=== PATIENT | female | born 1980 | race Caucasian/White ===

== ENCOUNTER 2017-07-31 13:56 | Emergency (ER) | payer SELFPAY ==
[2017-07-31 14:50] LABS: Bilirubin Negative (Negative); Blood, Urine Large (Negative); Clarity CLOUDY (Clear); Glucose, Urine (Dipstick) Negative (Negative); Leukocyte Moderate (Negative); Nitrite Negative (Negative); Protein, Urine (Dipstick) Negative (Neg-Trace); Specific Gravity, Urine 1.023 (1.002-1.036); Urobilinogen 0.2 mg/dL (0.2-1.0)
[2017-07-31 14:56] LABS: Bacteria/HPF 1+ HPF (None Seen); Hyaline Casts/LPF 0-3 HYALINE CAST LPF (0-3 Hyaline); Pathc Cast-AUWi Flag 0.13 (0-2.49); WBC/HPF 21-50 HPF (0-3)
[2017-07-31 15:00] LABS: Pregnancy Test - Urine (BHCG) Negative (Negative); Pregu Control Background? CLEAR/WHITE (CLR/WHITE); Pregu Control Bar Appear? YES (CONTROL BAR); Specific Gravity 1.023 (1.002-1.036)
[2017-07-31] MEDS ORDERED: Ondansetron HCl/PF 4 MG/2 ML Vial ONE (15:44)
[2017-07-31] MEDS ORDERED: Ketorolac Tromethamine 30 MG/ML VIAL ONE (15:44)
[2017-07-31] MEDS ORDERED: Morphine 4 MG/ML Carpuject ONE ×3 (15:44→20:01)
--- NOTE | 2017-07-31 15:49 | CT ---
CT OF THE ABDOMEN AND PELVIS WITHOUT IV CONTRAST 07/31/17 INDICATION: 37-year-old female with right flank pain. COMPARISON: None. FINDINGS: There is diffuse renal cortical thinning involving the right kidney. There is moderate to severe pelv ocaliectasis. There is a 3.9 mm stone at the level of the right UPJ. There are additional nonobstruct ing calculi involving the mid inferior aspect of the left kidney. There is perinephric stranding invo lving the right kidney. No additional distal ureteral calculus is noted. Left kidney on this unopacified exam is within normal limits. The lung bases are clear. Unopacified liver, spleen, pancreas and adrenal glands are within normal limits. There is a normal appendix in the right lower quadrant. The uterus, adnexa, bladder, rectum, and dariel rectal soft tissues are unremarkable. No definite acute osseous abnormality is evident. IMPRESSION: 1. Findings suspicious for chronic right UPJ obstruction with diffuse renal cortical thinning in volving the right kidney. There is right nephrolithiasis and a small stone involving the proximal rig ht UPJ measuring up to 3.9 mm. There is perinephric stranding present. A superimposed ascending urina ry tract infection cannot be entirely excluded. Recommend correlation with clinical examination. 2. Unopacified left kidney appears within normal limits. 3. No additional acute abnormality. POS: [facility]
[2017-07-31 16:18] LABS: #Basophils 0.1 thou/uL (0.0-0.2); #Eosinphils 0.1 thou/uL (0.0-0.7); #Lymphocytes 2.3 thou/uL (1.20-3.40); #Monocytes 0.8 thou/uL (0.11-0.59); #Neutrophils 9.9 thou/uL (1.40-6.50); %Basophils 0.5 % (0.0-1.0); %Eosinophils 1.1 % (0.0-10.0); %Lymphocytes 17.4 % (21.0-51.0); %Monocytes 5.8 % (0.0-10.0); %Neutrophils 75.2 % (42.0-75.0); Mean Corpuscular HGB CONC 34.4 g/dL (32.0-36.0); Mean Corpuscular Hemoglobin 33.7 pg (27.0-31.0); Mean Platelet Volume 7.6 fL (7.4-10.4); Platelet Count 334 thou/uL (130-400); RBC Distribution Width 11.9 % (11.5-14.5); Red Blood Cell (RBC) Count 4.74 mill/uL (4.20-5.40); White Blood Cell (WBC) Count 13.2 thou/uL (4.8-10.8)
[2017-07-31 16:38] LABS: ALT (SGPT) 37 U/L (8-55); AST (SGOT) 20 U/L (5-34); Alkaline Phosphatase 83 U/L (40-150); Anion Gap 16 mmol/L (10-20); BUN (Urea Nitrogen) 14 mg/dL (7.0-18.7); Bilirubin, Total 0.3 mg/dL (0.2-1.2); Calc. Creatinine Clearance 0 mL/min (70-130); Calcium 9.5 mg/dL (7.8-10.44); Carbon Dioxide 22 mmol/L (22-29); Chloride 104 mmol/L (98-107); Estimated GFR-MDRD 56; Globulin 3.3 g/dL (2.4-3.5); Glucose 100 mg/dL (70-105); Lipase 25 U/L (8-78); Potassium 4.3 mmol/L (3.5-5.1); Protein, Total 7.3 g/dL (6.0-8.3); Sodium 138 mmol/L (136-145)
[2017-07-31 19:04] LABS: Bilirubin Negative (Negative); Blood, Urine Negative (Negative); Clarity CLOUDY (Clear); Glucose, Urine (Dipstick) Negative (Negative); Leukocyte Moderate (Negative); Nitrite Negative (Negative); Protein, Urine (Dipstick) Negative (Neg-Trace); Specific Gravity, Urine 1.018 (1.002-1.036); Urobilinogen 0.2 mg/dL (0.2-1.0); pH, Urine 6.5 (5.0-9.0)
[2017-07-31 19:06] LABS: Bacteria/HPF None Seen HPF (None Seen); Hyaline Casts/LPF 7-10 HYALINE CAST LPF (0-3 Hyaline); Pathc Cast-AUWi Flag 2.03 (0-2.49); RBC/HPF 0-3 HPF (0-3); WBC/HPF 21-50 HPF (0-3)
== END 2017-07-31 20:17 | disposition home or self-care (01) ==
LOC: ERS 13:56
DX: N20.0 Calculus of kidney (principal); N39.0 Urinary tract infection, site not specified; F41.9 Anxiety disorder, unspecified; F31.9 Bipolar disorder, unspecified; F17.210 Nicotine dependence, cigarettes, uncomplicated; Z79.899 Other long term (current) drug therapy
CPT/HCPCS: 36415; 51701; 74176; 80053; 81003; 81015; 81025; 83690; 85025; 96361; 96374; 96375; 96376; 99406; A4353; J1885; J2270; J2405

== ENCOUNTER 2017-09-26 11:45 | Outpatient (CLI) | payer MEDICAID ==
[2017-09-26 12:46] LABS: Hemoglobin 15.7 g/dL (12.0-16.0); Mean Corpuscular HGB CONC 33.1 g/dL (32.0-36.0); Mean Corpuscular Hemoglobin 32.5 pg (27.0-31.0); Mean Corpuscular Volume 98.4 fl (81.0-99.0); Mean Platelet Volume 8.1 fL (7.4-10.4); Platelet Count 289 thou/uL (130-400); RBC Distribution Width 12.2 % (11.5-14.5); Red Blood Cell (RBC) Count 4.84 mill/uL (4.20-5.40); White Blood Cell (WBC) Count 9.8 thou/uL (4.8-10.8)
[2017-09-26 12:57] LABS: PTT 29.4 SEC (22.9-36.1); Prothrombin Time 13.3 SEC (12.0-14.7)
[2017-09-26 13:18] LABS: BHCG - Serum Negative (NEGATIVE); Pregs Control Background? CLEAR/WHITE (CLR/WHITE); Pregs Control Bar Appear? YES (CONTROL BAR)
[2017-09-26 13:27] LABS: Anion Gap 16 mmol/L (10-20); BUN (Urea Nitrogen) 16 mg/dL (7.0-18.7); Calc. Creatinine Clearance 0 mL/min (70-130); Calcium 9.6 mg/dL (7.8-10.44); Carbon Dioxide 23 mmol/L (22-29); Chloride 101 mmol/L (98-107); Estimated GFR-MDRD 65; Glucose 91 mg/dL (70-105); Potassium 4.7 mmol/L (3.5-5.1); Sodium 135 mmol/L (136-145)
== END 2017-09-26 11:46 | disposition home or self-care (01) ==
LOC: LABBT 11:45
PROVIDERS: ATTEND Urology
DX: Z01.812 Encounter for preprocedural laboratory examination (principal); N13.30 Unspecified hydronephrosis; N13.5 Crossing vessel and stricture of ureter without hydronephrosis
CPT/HCPCS: 80048; 83970; 84703; 85027; 85610; 85730

== ENCOUNTER 2017-10-08 06:51 | Day surgery (SDC) | payer MEDICAID, OTHER ==
[2017-09-26 12:00] VITALS: BMI 41.1
[2017-10-08] MEDS ORDERED: Fentanyl 100 MCG/2 ML VIAL ONE ×2 (08:28→10:35)
[2017-10-08] MEDS ORDERED: Iothalamate Meglumine 60% 50 ML VIAL FS ONE (08:33)
--- NOTE | 2017-10-08 08:36 | RAD ---
ABDOMEN 1 VIEW: HISTORY: Stones. COMPARISON: 07/31/17. FINDINGS: A large amount of stool is present throughout the colon, partially obscuring the renal outlines. Phl eboliths are apparent within the pelvis. Subtle hyperdensity over the inferior pole of the right meagan al shadow may represent the largest of the stones seen on prior CT. The other right renal stones and right ureteral calcification are not well visualized, likely due to overlying bowel content and alisia ent body habitus. IMPRESSION: 1. Constipation. 2. Poor visualization of urinary tract calcifications. POS: [facility]
[2017-10-08] MEDS ORDERED: Levofloxacin 500 mg/D5W 100 ml Premix Bag ONE (08:37)
[2017-10-08] MEDS ORDERED: Midazolam HCl 2 mg/2 ml Vial ONE ×2 (08:39→08:45)
[2017-10-08] MEDS ORDERED: Sodium Chloride 0.9% 10 ML ONE (08:40)
[2017-10-08] MEDS ORDERED: cefTRIAXone\\ROCEPHIN 1 GM VIAL ONE (08:40)
[2017-10-08] MEDS ORDERED: Phenazopyridine HCl 97.5 MG TABLET ONE (10:41)
[2017-10-08] MEDS ORDERED: Oxybutynin 5 MG TAB ONE (10:41)
--- NOTE | 2017-10-08 11:26 | OP ---
DATE OF CONSULTATION: 10/08/2017 PREOPERATIVE DIAGNOSES: 1. A 37-year-old female, morbidly obese with history of recurrent kidney stones , right UPJ obstruction. 2. History of retained ureteral stent requiring percutaneous nephrolithotomy, laser lithotripsy of encrusted stone and bladder stone nidus in [address] 3. Recent CT demonstrating chronic right hydronephrosis with thinning of the renal cortex consistent with chronic UPJ obstruction, right renal pelvic stone 3 -4 mm, right lower pole stone nidus x2, 6 mm, 3-4 mm respectively. One of the stones may be parenchymal based. POSTOPERATIVE DIAGNOSES: 1. A 37-year-old female, morbidly obese with history of recurrent kidney stones , right UPJ obstruction. 2. History of retained ureteral stent requiring percutaneous nephrolithotomy, laser lithotripsy of encrusted stone and bladder stone nidus in 2015 outside hospital. 3. Recent CT demonstrating chronic right hydronephrosis with thinning of the renal cortex consistent with chronic UPJ obstruction, right renal pelvic stone 3 -4 mm, right lower pole stone nidus x2, 6 mm, 3-4 mm respectively. One of the stones may be parenchymal based. PROCEDURES: Cystoscopy, right retrograde, right intramural balloon dilation of the ureter, 6 x 24 double-J ureteral stent, flexible ureteroscopy, balloon dilation of proximal ureteral stricture at the level of L2-3, pyeloscopy, laser lithotripsy of multiple right lower pole stone, basket extraction of stone fragments. SURGEON: Osiris Mason D.O. ANESTHESIA: General. COMPLICATIONS: None apparent. INTRAOPERATIVE FINDINGS: 1. Bladder unremarkable. 2. No evidence of ureteral calculi. 3. Right ureteral stricture at the level of L2-3 ureter. 4. Right lower pole stone nidus, multiple. SPECIMEN: Stone fragments for chemical analysis. INDICATIONS FOR THE PROCEDURE AND HISTORY: Ms. Mitchell is a 37-year-old morbidly obese female who presented to the emergency room due to right flank pain. The patient had a CT scan demonstrating chronically dilated right kidney with thinning of the renal parenchyma with multiple right lower pole renal lithiasis, right renal pelvic stone moiety as above. CT demonstrated possible ureteral stricture at the level of proximal ureter just distal to the UPJ. There is no crossing vessels are seen; however, this is suboptimal as a noncontrast study, the left kidney was unremarkable. She has a history of retained ureteral stent requiring percutaneous nephrolithotomy and treatment of bladder, kidney, and encrusted ureteral stent that performed in 2015. The patient has been formally counseled regarding ureteroscopy, retrograde, balloon dilatation and treatment of stone. She does relate history of encrusted ureteral stent accelerated with delayed treatment in [place] resulting in incrustation. I informed the patient regarding importance of compliance and followup, and treatment intervention was advised. As there has a history of polysubstance abuse, patient was given strict instructions regarding proper use of narcotics scheduled. She verbalizes understanding. DESCRIPTION OF THE PROCEDURE: After an informed consent is signed, the patient is taken to the operating room, placed in a dorsal lithotomy position with the genital area prepped and draped in usual surgical sterile fashion. A 21-Burmese cystoscope was utilized for cystoscopy which demonstrated normal bladder. The UO's were in normal anatomical location. We placed a 5-Burmese open-ended catheter and a retrograde pyelogram was performed demonstrating a subtle narrowing at the right proximal ureter at L2-3 level. I was able to opacify proximally without any issues demonstrating chronically dilated collecting system. The stones are difficult to see on fluoroscopy as the patient is morbidly obese. Preop KUB demonstrated a faint calcific density in the right lower pole and no other stones were seen. At this time, the wire was placed and a 0.35 sensor wire was passed into the kidney without any issues. At this time, with the wire in situ, we performed balloon dilatation of the intramural ureter using [employer] 12 Burmese 4 cm balloon dilator at the intramural ureter. Subsequently, we were able to pass a dual lumen access sheath, 10 Burmese at the level of the proximal ureter just distal to the ureteral stricture opacifying the collecting system. A second safety wire was able to be passed without difficulty. We passed 11/13 Burmese 28 cm navigator into the proximal ureter without difficulty distal to the ureteral stricture. A flexible ureteroscope was advanced. Upon engaging the ureteral stricture at the level of L2-L3, I was unable to pass the flexible ureteroscope over the wire. Therefore, we transitioned to ureteroscopic balloon dilator of the ureter. A 12 Burmese balloon dilator was utilized to dilate the area in question. Pressure was held for approximately 2 minutes. Subsequently, I was able to pass the ureteroscope without any issues. We surveyed the collecting system which demonstrated multiple right lower pole stone. The very dependent portion of the right lower pole was unable to be visualized due to the angle of the lower pole infundibulum. However, in the lower pole, I found multiple renal stones concomitant likely consistent with CT findings. I did not see any renal pelvic stone. No other stones were seen in the other calices. As are all in the lower pole, we passed a 200 micron laser fiber and laser lithotripsy of stone in a dust like setting and those that were amendable to be basket extracted was basket extracted without trauma to the proximal ureter that was recently dilated. The stones were fragmented into tiny debris dust-like and we were able to basket extract majority of these. What remained were tiny fragments that did not needed to be basket extracted. At the end of the procedure, we also surveyed the ureter distally and there was no evidence of stone nidus in the ureter. The stricture dilatation area was dilated successfully. At this time, the navigator was removed and a 6 x 24 double-J ureteral stent was able to be passed without difficulty. She tolerated the procedure well. We will schedule a Lasix renal scan on 10/17/2017 to assess the function of the kidney. If there is adequate function of the kidney, a tentative CT scan for staging for residual stone nidus is scheduled for 2017. If no significant stone debris, we will perform a local cystoscopy stent pull. If there is no evidence of function /minimal function, will discuss with patient regarding options of nephrectomy. She is discharged with [place] 5/325 # 50 one to two p.o. q.6-8 hours p.r.n., Omnicef for a course of 7 days, oxybutynin XL 10 mg, Colace p.r.n., and AZO p.r.n. She [facility] an appointment with [facility] 10/[facility]/2017 at 8:00 a.m. JOSE ELIAS
[2017-10-08] MEDS ORDERED: HYDROcodone/Acetaminophen 5/325 mg Tablet ONE (12:02)
--- NOTE | 2017-10-08 12:45 | RAD ---
RETROGRADE URETEROGRAM INTRAOPERATIVE FLUOROSCOPY: HISTORY: Right ureteral pathology. FINDINGS: Intraoperative fluoroscopy was provided for a retrograde study, as performed by Dr. Mason. Spo t fluoroscopic images show contrast opacification of the right ureter and renal collecting system wit h distention of the right renal calyces. Final image shows a double pigtail stent overlying the cour se of the right ureter. POS: [facility]
[2017-10-08] MEDS ORDERED: Lidocaine 1% PF 5 ML VIAL ONE (13:32)
[2017-10-08] MEDS ORDERED: Ondansetron HCl/PF 4 MG/2 ML Vial ONE (13:32)
[2017-10-08] MEDS ORDERED: Glycopyrrolate 0.2 MG/ML 5 ML SYRINGE ONE (13:32)
[2017-10-08] MEDS ORDERED: diphenhydrAMINE 50 MG/ML VIAL ONE (13:32)
[2017-10-08] MEDS ORDERED: PROPOFOL 200 MG/20 ML VIAL ONE (13:32)
[2017-10-08] MEDS ORDERED: Dexamethasone 20 MG/5 ML VIAL ONE ×2 (13:32)
[2017-10-08] MEDS ORDERED: PHENYLEPHRINE-NS 100 MCG/ML 10 ML SYRINGE ONE (13:32)
[2017-10-14 11:24] LABS: CA Phosphate 92 % (.); Color Brown (.); Stone Weight 9.6 mg (.)
== END 2017-10-08 12:25 | disposition home or self-care (01) ==
LOC: SDC 06:51
PROVIDERS: ATTEND Urology
PROC: 0TF38ZZ Fragmentation in Right Kidney Pelvis, Via Natural or Artificial Opening Endoscopic (ICD-10-PCS; principal; 2017-10-08)
PROC: 0T768DZ Dilation of Right Ureter with Intraluminal Device, Via Natural or Artificial Opening Endoscopic (ICD-10-PCS; principal; 2017-10-08)
PROC: BT1D1ZZ Fluoroscopy of Right Kidney, Ureter and Bladder using Low Osmolar Contrast (ICD-10-PCS; principal; 2017-10-08)
PROC: 0TC08ZZ Extirpation of Matter from Right Kidney, Via Natural or Artificial Opening Endoscopic (ICD-10-PCS; principal; 2017-10-08)
DX: N20.0 Calculus of kidney (principal); N13.1 Hydronephrosis with ureteral stricture, not elsewhere classified; E78.5 Hyperlipidemia, unspecified; F17.210 Nicotine dependence, cigarettes, uncomplicated; E66.01 Morbid (severe) obesity due to excess calories; Z68.41 Body mass index [BMI] 40.0-44.9, adult; Z87.442 Personal history of urinary calculi; Z79.899 Other long term (current) drug therapy
CPT/HCPCS: 74018; 74420; 82365; 88300; 96374; A4216; C1758; C1769; J0696; J1100; J1200; J1956; J2001; J2250; J2405; J2704; J3010; Q9961

== ENCOUNTER 2017-10-17 12:18 | Outpatient (CLI) | payer OTHER ==
--- NOTE | 2017-10-17 17:24 | NM ---
NUCLEAR MEDICINE RENOGRAM WITH FUROSEMIDE: 10/17/17 HISTORY: 37-year-old female with severe right hydronephrosis, due to chronic UPJ obstruction. TECHNIQUE: As per Dr. Mason protocol, a nurse placed a Diaz catheter in the patient prior to injection. Next, 40 mg (in 4 mL solution) of furosemide (Lasix) injected IV. 15 minutes later, 8.2 millicuries of technetium 99m-MAG3 injected IV. Immediate dynamic flow scintigraphy, followed by continued dynamic scintigraphy for a total of 48 min utes, of the abdomen and pelvis from posterior view. Counts obtained over the bilateral kidneys, and used to plot time-activity curves on graph. FINDINGS: Scintigraphic images demonstrate very small, atrophic right kidney. The patient has a right ureteral stent and therefore nonvisualization of activity in the right ureter could be due to the fact that th e ureteral stent is present, but could also be due to mechanical obstruction and/or severe right diana l hypofunction. Activity is visualized in the distal left ureter by approximately 145 seconds. A small amount of acti vity is seen in the bladder at that time, which is later drained away. QUANTITATIVE DATA: PARAMETERS LEFT KIDNEY RIGHT KIDNEY Split renal function: 94% 6% Time to peak: 2.4 minutes 1.5 minutes Time of half maximum: 7.8 minutes 11.3 minutes On the time-activity curve, the left kidney has a normal, rapid sharp peak of approximately 1000 coun ts per second, followed by an appropriate, normal washout decay curve. The right kidney has a very low peak activity of approximately 50 counts per second, followed by a re lative flat decay curve, with very low counts. IMPRESSION: 1. Atrophic and severely hypofunctioning right kidney. 2. Because of the presence of a right ureteral stent, it is not possible to determine whether or not there is also a concomitant high grade mechanical obstruction at the right ureteropelvic junctio n. 3. Normal left renal function. POS: [facility]
== END 2017-10-17 12:19 | disposition home or self-care (01) ==
LOC: NM 12:18
PROVIDERS: ATTEND Urology
DX: N13.5 Crossing vessel and stricture of ureter without hydronephrosis (principal); N28.9 Disorder of kidney and ureter, unspecified; Z96.0 Presence of urogenital implants
CPT/HCPCS: 78708; A4641; A9562

== ENCOUNTER 2017-10-18 12:47 | Emergency (ER) | payer OTHER ==
[2017-10-18] MEDS ORDERED: Ondansetron HCl/PF 4 MG/2 ML Vial ONE (13:23)
[2017-10-18] MEDS ORDERED: Acetaminophen 500 MG TAB ONE (13:34)
[2017-10-18 13:41] LABS: Bilirubin Negative (Negative); Blood, Urine Moderate (Negative); Clarity Cloudy (Clear); Glucose, Urine (Dipstick) Negative (Negative); Leukocyte Large (Negative); Nitrite Negative (Negative); Protein, Urine (Dipstick) 100 mg/dL (Neg-Trace); Specific Gravity, Urine 1.015 (1.005-1.030); Urobilinogen 0.2 mg/dL (0.2-1.0)
[2017-10-18 13:46] LABS: Bacteria/HPF 1+ HPF (None Seen); Crystals/HPF 2+ AMORPH PHOS HPF (Negative)
[2017-10-18 13:56] LABS: Band 1 % (5-11); Hemoglobin 18.4 g/dL (12.0-16.0); Lymphocytes 24 % (21-51); MDiff Complete? YES; Mean Corpuscular HGB CONC 35.5 g/dL (32.0-36.0); Mean Corpuscular Hemoglobin 32.5 pg (27.0-31.0); Mean Corpuscular Volume 91.7 fl (81.0-99.0); Mean Platelet Volume 7.6 fL (7.4-10.4); Monocytes 9 % (0-10); Neutrophil 60 % (42-75); PLT Morphology Comment Appears Adequate; Platelet Count 394 thou/uL (130-400); RBC Distribution Width 12.4 % (11.5-14.5); Reactive Lymphocytes 6 % (0-10); Red Blood Cell (RBC) Count 5.68 mill/uL (4.20-5.40); White Blood Cell (WBC) Count 10.8 thou/uL (4.8-10.8)
[2017-10-18 13:59] LABS: ALT (SGPT) 35 U/L (8-55); AST (SGOT) 18 U/L (5-34); Albumin 4.5 g/dL (3.5-5.0); Alkaline Phosphatase 95 U/L (40-150); Anion Gap 17 mmol/L (10-20); BUN (Urea Nitrogen) 18 mg/dL (7.0-18.7); Bilirubin, Total 0.6 mg/dL (0.2-1.2); Calc. Creatinine Clearance 0 mL/min (70-130); Calcium 11.2 mg/dL (7.8-10.44); Carbon Dioxide 23 mmol/L (22-29); Chloride 102 mmol/L (98-107); Estimated GFR-MDRD 60; Globulin 3.7 g/dL (2.4-3.5); Glucose 92 mg/dL (70-105); Lipase 24 U/L (8-78); Potassium 3.9 mmol/L (3.5-5.1); Protein, Total 8.2 g/dL (6.0-8.3); Sodium 138 mmol/L (136-145)
== END 2017-10-18 14:38 | disposition home or self-care (01) ==
LOC: SCSER 12:47
DX: R11.2 Nausea with vomiting, unspecified (principal); R19.7 Diarrhea, unspecified; F17.210 Nicotine dependence, cigarettes, uncomplicated; F41.9 Anxiety disorder, unspecified; F31.9 Bipolar disorder, unspecified; Z87.442 Personal history of urinary calculi
CPT/HCPCS: 36415; 80053; 81003; 81015; 83690; 85025; 87086; 96361; 96374; 99406; J2405

== ENCOUNTER 2017-10-21 07:17 | Outpatient (CLI) | payer OTHER ==
--- NOTE | 2017-10-21 10:22 | CT ---
ABDOMEN AND PELVIS CT SCAN WITHOUT IV CONTRAST: Date: 10/21/17 HISTORY: 37-year-old female with history of renal calculus. Right ureteral stent. COMPARISON: 07/31/17. FINDINGS: The lung bases are clear. Liver, gallbladder, pancreas, spleen, and adrenal glands are unremarkable. Small right kidney with right ureteral stent in place. There is very severe right-sided renal cortica l loss. No significant hydronephrosis with marked improvement in the hydronephrosis from the prior st udy. No evidence of overt residual calculus seen. Normal appearing appendix. No evidence for other si gnificant acute process. IMPRESSION: Right ureteral stent in place with marked decompression of the previously noted hydronephrosis. Small right kidney with very severe diffuse right renal cortical loss. No definite evidence for residual r enal calculus. POS: [facility]
== END 2017-10-21 07:18 | disposition home or self-care (01) ==
LOC: SCSCT 07:17
PROVIDERS: ATTEND Urology
DX: N20.0 Calculus of kidney (principal); N13.5 Crossing vessel and stricture of ureter without hydronephrosis; N28.89 Other specified disorders of kidney and ureter; Z96.0 Presence of urogenital implants
CPT/HCPCS: 74176